=== PATIENT | male | born 1975 | race Hispanic/Latino ===

== ENCOUNTER → 2025-07-13 | Outpatient (CLI) | payer OTHER ==
[2025-07-13 00:30] VITALS: PULSE 74; RESP 4
[2025-07-13 21:44] VITALS: PULSE 82; RESP 18
[2025-07-13 22:30] VITALS: PULSE 74; RESP 12
[2025-07-13 23:00] VITALS: PULSE 70; RESP 12
[2025-07-13 23:30] VITALS: PULSE 70; RESP 12
[2025-07-14] VITALS (8 sets, daily range): PULSE 68–82; RESP 4–18
== END | disposition home or self-care (01) ==
LOC: SLP 20:35
PROVIDERS: ATTEND Nurse Practitioner Family
DX: G47.33 Obstructive sleep apnea (adult) (pediatric) (principal)
CPT/HCPCS: 95810